=== PATIENT | male | born 1975 | race Caucasian/White ===

== ENCOUNTER 2017-05-14 13:18 | Emergency (ER) | payer MEDICAID ==
[~2017-05-14] VITALS: Ht 172.7 cm; Wt 70.5 kg
[2017-05-14 13:29] VITALS: BP 135/80
[2017-05-14] MEDS ORDERED: HYDROcodone/acetaminophen 10/325mg tab PO ONE (14:10)
[2017-05-14] MEDS ORDERED: LIDOcaine 1.5% w/epinephrine 1:200,000 5ml ampul IJ ONE (14:10)
[2017-05-14] MEDS ORDERED: TETanus/Pertussis (Acell)/Diphther VAC/PF (Tdap-Adult) 0.5ml syringe IM ONE (14:10)
[2017-05-14] MEDS ORDERED: CEPH-571 PO (15:07)
[2017-05-14] MEDS ORDERED: HYDR-569 PO (15:07)
== END 2017-05-14 15:35 | disposition home or self-care (01) ==
LOC: ER 13:18
DX: S41.112A Laceration without foreign body of left upper arm, initial encounter (principal); Z88.0 Allergy status to penicillin; W17.89XA Other fall from one level to another, initial encounter; Y93.89 Activity, other specified; Y92.89 Other specified places as the place of occurrence of the external cause; Y99.8 Other external cause status
CPT/HCPCS: 12005; 90471; 90715; 99284; A6223; A6255; A6446; A6449; J3490

== ENCOUNTER 2017-05-16 20:10 | Emergency (ER) | payer MEDICAID ==
[~2017-05-16] VITALS: Ht 172.7 cm; Wt 70.4 kg
[~2017-05-16 20:10] MED LIST: CEPH-571 PO; HYDR-569 PO
[2017-05-16 20:35] VITALS: BP 123/82
== END 2017-05-16 22:16 | disposition home or self-care (01) ==
LOC: ER 20:10
DX: S51.812D Laceration without foreign body of left forearm, subsequent encounter (principal); Z88.0 Allergy status to penicillin; W29.3XXD Contact with powered garden and outdoor hand tools and machinery, subsequent encounter
CPT/HCPCS: 99281; A6446